=== PATIENT | female | born 1975 | race Caucasian/White ===

== ENCOUNTER 2022-03-17 10:04 | Day surgery (SDC) | payer OTHER ==
[2022-03-12 16:35] VITALS: BMI 20.8
[2022-03-17 11:50] VITALS: TEMP 97.1
[2022-03-17 12:17] VITALS: BP 99/52; PULSE 82
== END 2022-03-17 12:17 | disposition home or self-care (01) ==
LOC: FASU-ENDO 10:04
PROVIDERS: ATTEND Internal Medicine Gastroenterology
PROC: 0DJD8ZZ Inspection of Lower Intestinal Tract, Via Natural or Artificial Opening Endoscopic (ICD-10-PCS; principal; 2022-03-17 11:21)
DX: Z12.11 Encounter for screening for malignant neoplasm of colon (principal); K64.1 Second degree hemorrhoids
CPT/HCPCS: 84703